=== PATIENT | female | born 1985 | race Asian ===

== ENCOUNTER 2018-09-04 19:59 | Emergency (ER) | payer OTHER ==
[~2018-09-04] VITALS: Ht 157.5 cm; Wt 83.6 kg
[2018-09-04] MEDS ORDERED: 0.9% SODIUM CHLORIDE 5 ML NEB SOLUTION NEB ONE ×2 (20:15)
[2018-09-04] MEDS: IPRATROPIUM BROMIDE 0.5 MG/2.5 ML NEB SOLUTION NEB ONE (20:22)
[2018-09-04] MEDS: ALBUTEROL SULFATE 5 MG/ML 20 ML NEB SOLN [BULK] NEB ONE (20:22)
[2018-09-04 22:41] VITALS: BP 119/67
== END 2018-09-04 22:46 | disposition home or self-care (01) ==
LOC: EMS 20:01
DX: J20.9 Acute bronchitis, unspecified (principal); J45.909 Unspecified asthma, uncomplicated; F17.210 Nicotine dependence, cigarettes, uncomplicated
CPT/HCPCS: 94644; 99406